=== PATIENT | female | born 2000 | race African-American/Black ===

== ENCOUNTER 2022-02-02 14:10 | Emergency (ER) | payer MEDICAID, SELFPAY ==
[2022-02-02 14:32] VITALS: BP 133/87; PULSE 86; TEMP 36.9; O2SAT 99; BMI 29.9
--- NOTE | 2022-02-02 14:53 | ED_ITS ---
HPI - Abdominal Pain General Chief Complaint: Abdominal Pain Stated Complaint: Stomach pain, nausea, vomiting, coughing Time Seen by Provider: 02/02/22 14:13 History of Present Illness HPI narrative: This 21-year-old female reports 3 days of symptoms including cough, nasal congestion, and now abdominal pain with nausea and some vomiting. She does not report any fevers or diarrhea. She does not have any dysuria symptoms. Her pain is located in the upper abdomen. Related Data Home Medications Medication Instructions Recorded Confirmed epinephrine 0.3 mg/0.3 mL 02/02/22 injection, auto-injector fluoxetine 20 mg capsule mg 02/02/22 Previous Rx's Medication Instructions Recorded ondansetron HCl 4 mg tablet 4 mg PO Q6H #20 tabs 02/02/22 Allergies Allergy/AdvReac Type Severity Reaction Status Date / Time apple Allergy Unknown Verified 02/02/22 14:35 Review of Systems Status of ROS Reports: 10 or more systems reviewed and unremarkable except as noted in History and below Narrative Constitutional: No fevers, no weight gain or loss. Eyes: No discharge. No vision changes. HENT: Nasal congestion. Cardiovascular: No chest pain, no palpitations. Respiratory: No shortness of breath, no wheezes. She reports a cough. Gastrointestinal: No diarrhea. Abdominal pain with some nausea and vomiting. Genitourinary: No dysuria, no hematuria. Musculoskeletal: Normal range of motion. Skin: No rashes, no pruritis. Neurological: No dizziness, weakness, sensory change, speech change. Endo/Heme/Allergies: No bruising or bleeding. No polydipsia. Pysch: no suicidality, no anxiety, no insomnia. All other systems reviewed and are negative. [facility] Social History Smoking Status: Never smoker How often do you have a drink containing alcohol: 2-3 times a week How many standard drinks containing alcohol do you have on a typical day: 3 or 4 How often do you have six or more drinks on one occasion: Never AUDIT-C Alcohol total score: 4 Non-prescribed substance use: denies use Exam Narrative: Exam Narrative: Constitutional: Well-developed, well-nourished, no acute distress. HEENT: Normocephalic, atraumatic. Neck: Normal range of motion. Nontender. Supple. Heart: Regular. No murmurs. Normal rate. Intact distal pulses. Lungs: Clear to auscultation. No chest discomfort. No wheezes, rhonchi, or rales. Abdomen: Normal bowel sounds. Tenderness in the upper epigastric region. No rebound tenderness. Genitalia: Deferred. Back: No midline tenderness. Normal range of motion. Extremities: Normal range of motion. No injury. Skin: Intact. No rash. Warm. No erythema or pallor. Neurologic: No altered sensation. No weakness. Alert and oriented. Psychiatric: No suicidality. No anxiety or depression. No insomnia. Nursing notes and vitals signs are reviewed. Const: Vital Signs, click to edit/add: Vital Signs - 24 hr 02/02/22 14:32 Temperature 98.5 F Pulse Rate [Left P ulse Oximeter] 86 Blood Pressure [Ri ght Upper Arm] 133/87 Pulse Oximetry 99 Oxygen Delivery Me thod Room Air Course Vital Signs Vital signs: Initial Vital Signs Temperature 98.5 F 02/02/22 14:32 Temperature Source Temporal Artery Scan 02/02/22 14:32 Pulse Rate 86 02/02/22 14:32 Blood Pressure 133/87 02/02/22 14:32 Blood Pressure Mean 102 02/02/22 14:32 Blood Pressure Position Supine 02/02/22 14:32 Pulse Oximetry 99 02/02/22 14:32 Oxygen Delivery Method 02/02/22 14:32 Vital Signs Temperature 98.5 F 02/02/22 14:32 Pulse Rate 86 02/02/22 14:32 Blood Pressure 133/87 02/02/22 14:32 Pulse Oximetry 99 02/02/22 14:32 Oxygen Delivery Method 02/02/22 14:32 Temperature 98.5 F 02/02/22 14:32 Pulse Rate 86 02/02/22 14:32 Blood Pressure 133/87 02/02/22 14:32 Pulse Oximetry 99 02/02/22 14:32 Oxygen Delivery Method 02/02/22 14:32 MDM - Abdominal Pain MDM Narrative Medical decision making narrative: This patient comes in with upper respiratory symptoms with associated nausea and vomiting also. Lab results returned with normal findings in every way. She is negative for mononucleosis, COVID, RSV, and influenza. I did also look with bedside ultrasound at her upper abdomen with normal findings. This was reassuring to the patient. She did receive a prescription for Zofran. She likely has some kind of viral upper respiratory infection. Lab Data Labs: Lab Results 02/02/22 02/02/22 02/02/22 Range/Units 14:27 15:11 15:11 WBC 7.17 (4.50-11.00) K/uL RBC 4.51 (4.00-5.20) m/uL Hgb 13.3 (12.0-16.0) gm/dL Hct 39.8 (33.0-51.0) % MCV 88 (80-100) fL MCH 30 (26-34) pg MCHC 33 (32-36) gm/dL RDW Coeff of Arthur 12.8 (11.5-15.5) % Plt Count 349 (140-440) K/uL Neut % (Auto) 50.8 (42.0-72.0) % Lymph % (Auto) 40.0 (20-44) % [place] % (Auto) 5.3 (0.0-11.0) % Eos % (Auto) 2.9 (0.0-7.0) % Baso % (Auto) 0.6 (0.0-3.0) % Neut # (Auto) 3.64 (1.7-7.0) K/uL Lymph # (Auto) 2.87 (0.90-2.90) K/uL [place] # (Auto) 0.40 (0.00-0.90) K/UL Eos # (Auto) 0.21 (0.00-0.50) K/uL Baso # (Auto) 0.04 (0.00-0.30) K/uL Abs Immat Gran (auto) 0.03 (0.00-0.30) K/uL Imm/Tot Granulo (auto) 0.4 % Sodium (135-149) mmol/L Potassium (3.6-5.1) mmol/L Chloride (96-114) mmol/L Carbon Dioxide (20-32) mmol/L BUN (5-24) mg/dL Creatinine (0.5-1.5) mg/dL Estimated Creat Clear Estimated GFR ml/min Glucose (60-115) mg/dL Calcium (8.4-10.6) mg/dL SARS-CoV-2 (PCR) Negative SARS-CoV-2 (Negative) Monoscreen Negative (Negative) Influenza Type A (PCR) Negative PCR FLU A (Negative) Influenza Type B (PCR) Negative PCR FLU B (Negative) RSV (PCR) Negative PCR RSV (Negative) 02/02/22 Range/Units 15:11 WBC (4.50-11.00) K/uL RBC (4.00-5.20) m/uL Hgb (12.0-16.0) gm/dL Hct (33.0-51.0) % MCV (80-100) fL MCH (26-34) pg MCHC (32-36) gm/dL RDW Coeff of Arthur (11.5-15.5) % Plt Count (140-440) K/uL Neut % (Auto) (42.0-72.0) % Lymph % (Auto) (20-44) % [place] % (Auto) (0.0-11.0) % Eos % (Auto) (0.0-7.0) % Baso % (Auto) (0.0-3.0) % Neut # (Auto) (1.7-7.0) K/uL Lymph # (Auto) (0.90-2.90) K/uL [place] # (Auto) (0.00-0.90) K/UL Eos # (Auto) (0.00-0.50) K/uL Baso # (Auto) (0.00-0.30) K/uL Abs Immat Gran (auto) (0.00-0.30) K/uL Imm/Tot Granulo (auto) % Sodium 140 (135-149) mmol/L Potassium 4.0 (3.6-5.1) mmol/L Chloride 107 (96-114) mmol/L Carbon Dioxide 25 (20-32) mmol/L BUN 7 (5-24) mg/dL Creatinine 0.6 (0.5-1.5) mg/dL Estimated Creat Clear 112.86 Estimated GFR 132 ml/min Glucose 85 (60-115) mg/dL Calcium 9.4 (8.4-10.6) mg/dL SARS-CoV-2 (PCR) (Negative) Monoscreen (Negative) Influenza Type A (PCR) (Negative) Influenza Type B (PCR) (Negative) RSV (PCR) (Negative) Discharge Plan Discharge Clinical Impression: Acute upper respiratory infection Patient Disposition: Home, Self-Care Condition: Stable Additional Instructions: Take medication as prescribed. Use [id number] medicines as needed and directed. Advanced diet as tolerated. Follow up with MD or return if worsening. Prescriptions: New ondansetron HCl 4 mg tablet 4 mg PO Q6H Qty: 20 0RF No Action epinephrine 0.3 mg/0.3 mL auto-injector Label Comments: INJECT 0.3 INTRAMUSCULARLY IF NEEDED FOR ANAPHYLAXIS. REPEAT IN 5 MINUTES IF NEEDED. fluoxetine 20 mg capsule Label Comments: Take 1 capsule by mouth once a day Follow Up/Referrals: Provider,Not a Local [Primary Care Provider] - Stand Alone Forms: [facility] Info Instructions Procedures Ultrasound Biliary exam #1: Anatomical areas examined: gallbladder, long and short axis and common bile duct Indications: RUQ/epigastric pain Exam type: limited abdominal ultrasound; RUQ Impression: normal exam
[2022-02-02 15:20] LABS: Basophils Absolute Auto 0.04 K/uL (0.00-0.30); Basophils Percent Auto 0.6 % (0.0-3.0); Eosinophils Absolute Auto 0.21 K/uL (0.00-0.50); Eosinophils Percent Auto 2.9 % (0.0-7.0); Hematocrit 39.8 % (33.0-51.0); Hemoglobin* 13.3 gm/dL (12.0-16.0); Immature Granulocytes Abs Auto 0.03 K/uL (0.00-0.30); Immature Granulocytes Pct Auto 0.4 %; Lymphocytes Absolute Auto 2.87 K/uL (0.90-2.90); Mean Corpuscular HGB Conc 33 gm/dL (32-36); Mean Corpuscular Hemoglobin 30 pg (26-34); Mean Corpuscular Volume 88 fL (80-100); Monocytes Percent Auto 5.3 % (0.0-11.0); Neutrophils Absolute Auto 3.64 K/uL (1.7-7.0); Neutrophils Percent Auto 50.8 % (42.0-72.0); Platelet Count* 349 K/uL (140-440); RDW Coefficient of Variation % 12.8 % (11.5-15.5); Red Blood Count 4.51 m/uL (4.00-5.20); White Blood Count* 7.17 K/uL (4.50-11.00)
[2022-02-02 15:23] LABS: Mono Screen* Negative (Negative); Slide Review Reflex No
[2022-02-02 15:24] LABS: PCR FLU A Negative PCR FLU A (Negative); PCR FLU B Negative PCR FLU B (Negative); PCR RSV Negative PCR RSV (Negative)
[2022-02-02 15:26] LABS: SARS PCR* Negative SARS-CoV-2 (Negative)
[2022-02-02 15:30] LABS: Chloride* 107 mmol/L (96-114); Sodium* 140 mmol/L (135-149)
[2022-02-02 15:33] LABS: Blood Urea Nitrogen* 7 mg/dL (5-24); Carbon Dioxide* 25 mmol/L (20-32); Creatinine* 0.6 mg/dL (0.5-1.5); Est. Creatinine Clearance* 112.86; Estimated Glomerular Filt Rate 132 ml/min; Glucose* 85 mg/dL (60-115)
[2022-02-02 15:34] LABS: Calcium* 9.4 mg/dL (8.4-10.6)
[2022-02-02 16:01] VITALS: BP 125/84; PULSE 78; O2SAT 100
== END 2022-02-02 16:03 | disposition home or self-care (01) ==
PROVIDERS: Emergency Provider Emergency Medicine Emergency Medical Services
DX: J06.9 Acute upper respiratory infection, unspecified (principal)
CPT/HCPCS: 36415; 76705; 80048; 85025; 86308; 87502; 87634; 87635; 99283; 99284